=== PATIENT | female | born 1980 | race African-American/Black ===

== ENCOUNTER 2016-08-14 18:39 | Emergency (ER) | payer SELFPAY ==
[~2016-08-14] VITALS: Ht 167.6 cm; Wt 86.3 kg
[2016-08-14] MEDS ORDERED: PROMETHAZINE HCL/CODEINE 6.25-10MG/5ML SYRUP UDCUP PO ONE (21:30)
[2016-08-14 21:37] VITALS: BP 131/71
== END 2016-08-14 22:54 | disposition home or self-care (01) ==
LOC: EMS 18:43
DX: J06.9 Acute upper respiratory infection, unspecified (principal); E11.9 Type 2 diabetes mellitus without complications
CPT/HCPCS: 71020; 99284